=== PATIENT | male | born 1960 | race American Indian/Alaskan Native ===

== ENCOUNTER 2019-05-19 07:54 | Emergency (ER) | payer SELFPAY ==
[2019-05-19] MEDS ORDERED: fentaNYL 100 MCG/2 ML INJ IV ONE (08:14)
[2019-05-19] MEDS ORDERED: ONDANSETRON 4 MG/2 ML INJ IV ONE (08:14)
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
[2019-05-19] MEDS ORDERED: HYDROcodone/ACETAMINOPHEN 5-325 MG TAB PO ONE (09:43)
[2019-05-19 09:45] VITALS: BP 128/78
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
== END 2019-05-19 10:51 | disposition home or self-care (01) ==
LOC: ED 07:54
DX: S09.90XA Unspecified injury of head, initial encounter (principal); Z79.899 Other long term (current) drug therapy; Y04.2XXA Assault by strike against or bumped into by another person, initial encounter; Y93.89 Activity, other specified; Y92.89 Other specified places as the place of occurrence of the external cause; Y99.8 Other external cause status
CPT/HCPCS: 70450; 70486; 96374; 96375; 99284; J2405; J3010